=== PATIENT | female | born 1940 | race Two or more races ===

== ENCOUNTER 2018-06-04 12:59 | Inpatient (IN) | payer OTHER ==
[~2018-06-04] VITALS: Ht 165.1 cm; Wt 170.0 kg
[2018-06-04] MEDS ORDERED: ATACAND32 MG (13:45)
[2018-06-04] MEDS ORDERED: NORVASC5 MG (13:45)
[2018-06-08] MEDS ORDERED: LIPITOR40 MG PO (08:37)
[2018-06-08] MEDS ORDERED: CLOPIDOGREL BIS75 MG PO (08:38)
[2018-06-08] MEDS ORDERED: ASA325 M1 PO (08:38)
== END 2018-06-08 11:25 | disposition home or self-care (01) | DRG 65 ==
LOC: ER 12:59 → MEDJ 06-05 10:57
PROVIDERS: ADMIT Internal Medicine
PROC: B348ZZZ Ultrasonography of Bilateral Internal Carotid Arteries (ICD-10-PCS; principal; 2018-06-05)
PROC: B342ZZZ Ultrasonography of Left Subclavian Artery (ICD-10-PCS; 2018-06-05)
PROC: B246ZZZ Ultrasonography of Right and Left Heart (ICD-10-PCS; 2018-06-05)
PROC: 4A12X4Z Monitoring of Cardiac Electrical Activity, External Approach (ICD-10-PCS; 2018-06-05)
PROC: B030ZZZ Magnetic Resonance Imaging (MRI) of Brain (ICD-10-PCS; 2018-06-05)
DX: I63.89 Other cerebral infarction (principal); I69.354 Hemiplegia and hemiparesis following cerebral infarction affecting left non-dominant side; I69.328 Other speech and language deficits following cerebral infarction; E78.00 Pure hypercholesterolemia, unspecified; I35.2 Nonrheumatic aortic (valve) stenosis with insufficiency; E11.9 Type 2 diabetes mellitus without complications; Z79.4 Long term (current) use of insulin
CPT/HCPCS: 70544

== ENCOUNTER 2022-11-12 09:39 | Outpatient (CLI) | payer OTHER ==
[~2022-11-12 09:39] MED LIST: ASA325 M1 PO; ATACAND32 MG; CLOPIDOGREL BIS75 MG PO; LIPITOR40 MG PO; NORVASC5 MG
== END 2022-11-12 09:48 | disposition home or self-care (01) ==
LOC: TOM 09:39
PROVIDERS: ATTEND Student in an Organized Health Care Education/Training Program
DX: R19.5 Other fecal abnormalities (principal); Z12.11 Encounter for screening for malignant neoplasm of colon

== ENCOUNTER 2023-02-09 08:14 | Inpatient (IN) | payer OTHER ==
[~2023-02-09] VITALS: Ht 162.6 cm; Wt 77.1 kg
[2023-02-10] MEDS ORDERED: NORVASC5 MG PO (11:20)
[2023-02-10] MEDS ORDERED: HYDRODIURIL12.5 MG PO (11:20)
[2023-02-10] MEDS ORDERED: TOPROL XL100 M1 PO (11:20)
[2023-02-10 15:56] LABS: HEMATOCRIT 35.4 % (36.0-45.00); HEMOGLOBIN 11.8 g/dL (12.0-15.00); MEAN CELL VOLUME 83.2 fL (80.00-100.00); MEAN CORPUSCULAR HEMOGLOBIN 27.8 pg (27.00-32.0); MEAN CORPUSCULAR HGB CONC 33.4 g/dl (32.0-36.0); PLATELET COUNT 230 K/uL (150-450); RED BLOOD COUNT 4.26 M/uL (4.00-6.00); RED CELL DISTRIBUTION WIDTH 14.7 % (11.5-14.5)
[2023-02-16 15:00] LABS: HEMATOCRIT 35.1 % (36.0-45.00); HEMOGLOBIN 11.1 g/dL (12.0-15.00); MEAN CELL VOLUME 84.8 fL (80.00-100.00); MEAN CORPUSCULAR HEMOGLOBIN 26.8 pg (27.00-32.0); MEAN CORPUSCULAR HGB CONC 31.6 g/dl (32.0-36.0); PLATELET COUNT 262 K/uL (150-450); RED BLOOD COUNT 4.14 M/uL (4.00-6.00); RED CELL DISTRIBUTION WIDTH 15.3 % (11.5-14.5)
[2023-02-16 15:20] LABS: ALBUMIN 2.8 gm/dL (3.4-5.0); CALCIUM 8.8 mg/dL (8.5-10.1); CREATININE SERUM 0.85 mg/dL (0.55-1.02); GFR 63.87; MAGNESIUM 1.7 mg/dL (1.8-2.4); PHOSPHOROUS 4.5 mg/dL (2.5-4.9); POTASSIUM 4.14 mEq/L (3.5-5.1)
[2023-02-16 16:25] LABS: ABG PH 7.338 (7.35-7.45); ABG PO2 77.7 mmHg (80-100); ABG pCO2 42.5 mmHg (35-45); BASE EXCESS -3.4 mmol/l; BICARBONATE 22.3 mmol/l (23-25); SaO2 94.2 %; Tco2 26.3 mmol/l
[2023-02-16 16:26] LABS: allen test SATISFACTORY; o2 40 %; puncture site RADIAL LEFT
[2023-02-17 06:26] LABS: HEMATOCRIT 27.1 % (36.0-45.00); HEMOGLOBIN 9.2 g/dL (12.0-15.00); MEAN CELL VOLUME 83.3 fL (80.00-100.00); MEAN CORPUSCULAR HEMOGLOBIN 28.2 pg (27.00-32.0); MEAN CORPUSCULAR HGB CONC 33.8 g/dl (32.0-36.0); PLATELET COUNT 204 K/uL (150-450); RED BLOOD COUNT 3.25 M/uL (4.00-6.00); RED CELL DISTRIBUTION WIDTH 15.1 % (11.5-14.5)
[2023-02-17 06:36] LABS: ALBUMIN 2.3 gm/dL (3.4-5.0); CALCIUM 8.3 mg/dL (8.5-10.1); CREATININE SERUM 0.76 mg/dL (0.55-1.02); GFR 72.68; MAGNESIUM 1.7 mg/dL (1.8-2.4); PHOSPHOROUS 5.1 mg/dL (2.5-4.9); POTASSIUM 4.58 mEq/L (3.5-5.1)
[2023-02-17] MEDS ORDERED: ALENDRONATE SOD70 MG (09:09)
[2023-02-17] MEDS ORDERED: JARDIANCE25 MG (09:10)
[2023-02-17 22:00] LABS: HEMATOCRIT 30.7 % (36.0-45.00); HEMOGLOBIN 10.2 g/dL (12.0-15.00); MEAN CELL VOLUME 83.6 fL (80.00-100.00); MEAN CORPUSCULAR HEMOGLOBIN 27.7 pg (27.00-32.0); MEAN CORPUSCULAR HGB CONC 33.1 g/dl (32.0-36.0); PLATELET COUNT 239 K/uL (150-450); RED BLOOD COUNT 3.67 M/uL (4.00-6.00); RED CELL DISTRIBUTION WIDTH 15.4 % (11.5-14.5)
[2023-02-18 06:22] LABS: MEAN CORPUSCULAR HEMOGLOBIN 27.6 pg (27.00-32.0); MEAN CORPUSCULAR HGB CONC 32.8 g/dl (32.0-36.0); PLATELET COUNT 191 K/uL (150-450); RED BLOOD COUNT 2.97 M/uL (4.00-6.00); RED CELL DISTRIBUTION WIDTH 15.3 % (11.5-14.5)
[2023-02-18 06:36] LABS: HEMOGLOBIN 8.2 g/dL (12.0-15.00)
[2023-02-18 06:39] LABS: CALCIUM 8.5 mg/dL (8.5-10.1); CREATININE SERUM 0.7 mg/dL (0.55-1.02); GFR 79.91; MAGNESIUM 2.3 mg/dL (1.8-2.4); PHOSPHOROUS 2.3 mg/dL (2.5-4.9); POTASSIUM 4.02 mEq/L (3.5-5.1)
[2023-02-19 06:57] LABS: MEAN CELL VOLUME 85.2 fL (80.00-100.00); MEAN CORPUSCULAR HEMOGLOBIN 27.9 pg (27.00-32.0); MEAN CORPUSCULAR HGB CONC 32.8 g/dl (32.0-36.0); PLATELET COUNT 207 K/uL (150-450); RED BLOOD COUNT 2.93 M/uL (4.00-6.00); RED CELL DISTRIBUTION WIDTH 15.4 % (11.5-14.5)
[2023-02-19 07:08] LABS: HEMOGLOBIN 8.2 g/dL (12.0-15.00)
[2023-02-19] MEDS ORDERED: HYOSCYAMINE0.125 M1 SL (12:21)
[2023-02-19] MEDS ORDERED: INTESTINEX680 M1 PO (12:22)
== END 2023-02-19 13:29 | disposition home or self-care (01) | DRG 330 ==
LOC: O/R 02-16 06:21 → SURG 02-16 06:21
PROVIDERS: Internal Medicine Geriatric Medicine; ADMIT Surgery; ATTEND Surgery
PROC: 0DBP4ZZ Excision of Rectum, Percutaneous Endoscopic Approach (ICD-10-PCS; 2023-02-16)
PROC: 07BB4ZX Excision of Mesenteric Lymphatic, Percutaneous Endoscopic Approach, Diagnostic (ICD-10-PCS; 2023-02-16)
PROC: 0DTN4ZZ Resection of Sigmoid Colon, Percutaneous Endoscopic Approach (ICD-10-PCS; principal; 2023-02-16 13:30)
PROC: 4A12X4Z Monitoring of Cardiac Electrical Activity, External Approach (ICD-10-PCS; 2023-02-17)
DX: C18.7 Malignant neoplasm of sigmoid colon (principal); K62.5 Hemorrhage of anus and rectum; R59.0 Localized enlarged lymph nodes; E11.9 Type 2 diabetes mellitus without complications; Z79.4 Long term (current) use of insulin; I10 Essential (primary) hypertension; E66.9 Obesity, unspecified; Z68.29 Body mass index [BMI] 29.0-29.9, adult; D64.9 Anemia, unspecified